=== PATIENT | female | born 1940 | race Caucasian/White ===

== ENCOUNTER → 2018-07-22 | Outpatient (CLI) | payer MEDICARE, BC ==
--- NOTE | 2018-07-22 16:46 | PCVCIMAG ---
APPROVED REPORT Study performed: 07/22/2018 14:48:49 Exam: Stress Echocardiogram Indication: Hypertension, Hyperlipidemia Patient Location: Echo lab Stress Nurse: Viviane Aguiar RN Status: routine Ht: 5 ft 5 in HR: 75 bpm BP: 174/90 mmHg Rhythm: NSR Procedure The patient underwent an Exercise Stress Test using the Brad Protocol. Blood pressure, heart rate, and EKG were monitored. An Echocardiogram was performed by electric meter technician in four stages in quad fashion. At peak stress, four selected images were obtained and placed side by side with resting images for comparison. Stress Test Details Stress Test: Exercise stress testing was performed using a Brad protocol. HR Resting HR: 75 bpmMax Heart Rate (APMHR): 142 bpm Max HR Achieved: 169 bpmTarget HR (85% APMHR): 120 bpm % of APMHR: 119 Recovery HR: 93 bpm HR response to stress: Normal HR response to stress BP Resting BP: 174/90 mmHg Max BP: 200/100 mmHg Recovery BP: 164/100 mmHg BP response to stress: hypertensive at rest ECG Resting ECG: Sinus Rhythm Stress ECG: Sinus Rhythm Recovery ECG: Sinus Rhythm Clinical Reason for Termination: Hypertension Exercise duration: 6 min 00 sec Highest Stage Achieved: Stage 2: 2.5 mph at 12% grade. Exercise capacity: 7.00 METs Overall Exercise Capacity for Age: Normal Stress ECG Conclusion ECG: Non-ischemic Clinical: Non-ischemic Pre-Stress Echo The resting Echocardiogram showed normal left ventricular contractility with an estimated Ejection Fraction of about >55%. Normal wall motion in all segments on baseline images. Post-Stress Echo The stress Echocardiogram showed normal left ventricular contractility with an estimated Ejection Fraction of about 60-65%. Normal augmentation of wall motion in all segments on post stress images. Clinical No clinical or ECG evidence for ischemia. Conclusion Clinical Response: Non-ischemic Exercise Capacity: Average Stress ECG Response: Non-ischemic Stress Echo Images: Non-ischemic The left ventricle is normal in size and wall thickness in both the rest and stress images. Other Information Study Quality: Good <Conclusion> The left ventricle is normal in size and wall thickness in both the rest and stress images.
== END | disposition home or self-care (01) ==
LOC: PCVCIMAG 14:42
PROVIDERS: ATTEND Family Medicine
DX: I10 Essential (primary) hypertension (principal); E78.2 Mixed hyperlipidemia; K21.0 Gastro-esophageal reflux disease with esophagitis; Z87.891 Personal history of nicotine dependence
CPT/HCPCS: 93325; 93351; G0463